=== PATIENT | female | born 1960 | race Caucasian/White ===

== ENCOUNTER 2017-12-29 08:04 | Outpatient (CLI) | payer BC ==
--- NOTE | 2017-12-29 13:40 | MRI ---
NONCONTRAST ENHANCED MRI OF BRAIN: Date: 12/29/17 HISTORY: Dizziness. Patient with headache and altered smell. R42. TECHNIQUE: Multiplanar, multisequence noncontrast enhanced MRI of the brain obtained. FINDINGS/IMPRESSION: MRI images demonstrate the brain to be unremarkable. No evidence of intracranial masses, hemorrhages, strokes, or contusions seen. The ventricles are of normal size. No evidence of areas of abnormality seen in the major intracranial flow-voids. The cribriform plate is unremarkable with no evidence of c ribriform plate lesions. POS: [facility]
== END 2017-12-29 08:05 | disposition home or self-care (01) ==
LOC: TBSIIMAG 08:04
PROVIDERS: ATTEND Psychiatry & Neurology Neurology
DX: R42 Dizziness and giddiness (principal)
CPT/HCPCS: 70551

== ENCOUNTER 2018-07-11 10:25 | Outpatient (CLI) | payer BC ==
--- NOTE | 2018-07-11 14:08 | MRI ---
MRI OF THE TEMPOROMANDIBULAR JOINTS BILATERALLY: Date: 07/11/18 INDICATION: History of fall with left-sided TMJ dislocation, with chronic headaches. TECHNIQUE: Multiplanar, multisequence MRI images were obtained of the temporomandibular joints without IV contra st in open and closed positioning. COMPARISON: None. FINDINGS: Within the left TMJ, the articular meniscus is displaced anterior to the left mandibular head without evidence of recapture. There is a degenerative appearance of the mid to posterior aspect of the meni scus suspicious for tear. There is a small amount of suspected synovitis within the posterior aspect of the left TMJ joint. There is a limited anterior excursion of the left mandible when comparing the open and closed mouth positioning. The right TMJ joint demonstrates normal appearing interarticular meniscus with normal excursion. No acute fracture is evident. The visualized muscles of mastication appear within normal limits. No a bnormal lymph nodes are demonstrated. Visualized intracranial contents are unremarkable appearing. IMPRESSION: 1. Degenerated and displaced left-sided TMJ meniscus with limited anterior excursion of the left man dibular condyle when comparing the open and closed mouth positioning. 2. Right TMJ appears within normal limits. POS: [facility]
== END 2018-07-11 10:26 | disposition home or self-care (01) ==
LOC: TBSIIMAG 10:25
PROVIDERS: ATTEND Dentist General Practice
DX: S03.02XA Dislocation of jaw, left side, initial encounter (principal); M26.69 Other specified disorders of temporomandibular joint
CPT/HCPCS: 70336

== ENCOUNTER 2022-07-15 14:37 | Outpatient (CLI) | payer BC | END 2022-07-15 14:38 | disposition home or self-care (01) | LOC: SCSRAD 14:37 | PROVIDERS: ATTEND Family Medicine Sports Medicine | DX: M25.562 Pain in left knee (principal) ==